=== PATIENT | male | born 1960 | race Caucasian/White ===

== ENCOUNTER → 2021-09-18 | Outpatient (CLI) | payer OTHER ==
--- NOTE | 2021-09-18 09:44 | RAD ---
Bilateral knees 2 views each HISTORY: Chronic pain Left knee 2 views were taken of the left knee. There is no fracture or joint effusion or acute osseous abnormal ity. There is mild vascular calcification. Right knee 2 views were taken of the right knee. There is no fracture or joint effusion or acute osseous abnorma lity. IMPRESSION: 1. No acute osseous abnormality noted in either knee. Electronically signed by: Orlando Robison MD (09/18/2021 9:42 AM) [id number]
== END ==
LOC: RAD 09:12
PROVIDERS: ATTEND Family Medicine
DX: Z02.71 Encounter for disability determination (principal); M25.862 Other specified joint disorders, left knee; M25.861 Other specified joint disorders, right knee
CPT/HCPCS: 73560-50

== ENCOUNTER 2021-11-11 07:03 | Emergency (ER) | payer SELFPAY ==
[~2021-11-11] VITALS: Ht 198.1 cm; Wt 105.0 kg
[2021-11-11] MEDS ORDERED: NITROGLYCERIN SUBLINGUAL 0.4 MG BOTTLE OF 25. SL PRN (07:45)
[2021-11-11] MEDS ORDERED: ASPIRIN CHEWABLE 81 MG TABLET. PO ONE (07:45)
--- NOTE | 2021-11-11 07:51 | PHYS DOC ---
Past History Past Surgical History: Other Additional Past Surgical Histo: hernia Adult General Chief Complaint Chief Complaint: CHEST PAIN [facility] HPI Patient is a 61 year old male who presents with chest pain. Patient is known to have history of coronary artery disease, hyperlipidemia, high blood pressure, and type 2 diabetes. He comes to the ER today complaining of sternal chest pain that started at 4:00 this morning. He was at rest when the pain started. Pain is intermittent and initially radiated to the thoracic back but the back pain has since resolved. He could not identify any aggravating or alleviating factors. Denies that he has had similar symptoms to this in the past. Relates that he was recently treated earlier this year for Covid when he was hospitalized. He had some complaints of chest pain and underwent stress testing which was abnormal. He was subsequently taken to [facility] where cardiac catheterization was revealing for lesion which was not amenable to stenting. He was scheduled for routine coronary artery bypass graft surgery. This care was completed at the [facility] and his surgery is scheduled for next month to be completed at [facility]. He denies that he has been ill lately. No cough or viral symptoms. No shortness of breath. Does take baby aspirin daily and took his medication this morning. Review of Systems Review of Systems Constitutional: Denies fever or chills Eyes: Denies change in visual acuity, redness, or eye pain HENT: Denies nasal congestion or sore throat Respiratory: Denies cough or shortness of breath Cardiovascular: No additional information not addressed in HPI GI: Denies abdominal pain, nausea, vomiting, bloody stools or diarrhea : Denies dysuria or hematuria Musculoskeletal: Denies back pain or joint pain Integument: Denies rash or skin lesions Neurologic: Denies headache, focal weakness or sensory changes Endocrine: Denies polyuria or polydipsia All other systems were reviewed and found to be within normal limits, except as documented in this note. Allergies Allergies Allergies Coded Allergies Type Severity Reaction Last Updated Verified No Known Drug Allergies 11/11/21 No Physical Exam Physical Exam Constitutional: Well developed, well nourished, no acute distress, non-toxic appearance HENT: Normocephalic, atraumatic, bilateral external ears normal, oropharynx moist Eyes: PERRLA, EOMI, conjunctiva normal Neck: Normal range of motion, no tenderness Cardiovascular:Heart rate regular rhythm, no murmur, equal pulses bilateral upper extremities Lungs & Thorax: Bilateral breath sounds clear to auscultation Abdomen: Bowel sounds normal, soft, no tenderness Skin: Warm, dry, no erythema, no rash Extremities: No tenderness, no cyanosis, no clubbing, ROM intact, no edema. Neurologic: Alert and oriented X 3, normal motor function Psychologic: Affect normal Current Patient Data Vital Signs Vital Signs Date Time Temp Pulse Resp B/P (MAP) Pulse Ox O2 Delivery O2 Flow Rate FiO2 11/11/21 07:16 97.4 70 18 145/78 (100) 96 EKG EKG 07:10: Interpreted by ER physician. No STEMI. Normal sinus rhythm with rate of 71. Radiology/Procedures Radiology/Procedures [] Heart Score C/O Chest Pain: Yes HEART Score for Chest Pain: HEART Score for Chest Pain Response (Comments) Value History Moderately Suspicious 1 ECG Normal 0 Age >45 - < 65 1 Risk Factors >3 Risk Factors or Hx CAD 2 Troponin < Normal Limit 0 Total 4 Risk Factors: Risk Factors: DM, Current or recent (<one month) smoker, HTN, HLP, family history of CAD, obesity. Risk Scores: Risk Factors: DM, Current or recent (<one month) smoker, HTN, HLP, family history of CAD, obesity. Course & Med Decision Making Course & Med Decision Making Pertinent Labs and Imaging studies reviewed. (See chart for details) 07:30: Seen and examined. Pain has mostly resolved but he does continue to complain of very dull achiness in the sternal area. Aspirin and nitroglycerin ordered. EKG is nonacute. He does have a history however significant for coronary artery disease in his scheduled for upcoming coronary artery bypass graft surgery. Standard work-up is ordered. 09:30: Sleeping. Arouses easily. Currently pain-free. He was given 1 sublingual nitroglycerin which relieved his pain symptoms. Patient has significant history and requires admission for rule out. His initial troponin is not elevated. He is specifically requesting to go to the [facility] where his primary care team is. Will request transfer to the facility. 09:50: Discussed with Dr. Avalos at [facility]. Mr. Faria is accepted for transfer. Requesting tx dose lovenox which is ordered. Patient is agreeable to the transfer plan of care. 13:20: Transfer pending. Patient sleeping. No return of pain symptoms. 16:00; bed ready at [facility] and nursing report called. Second troponin was collected and not elevated during the ER course. Patient remained stable. EMS notified of need for transport. Dragon Disclaimer Dragon Disclaimer This electronic medical record was generated, in whole or in part, using a voice recognition dictation system. Departure Departure: Impression: Primary Impression: Other chest pain Additional Impression: Coronary artery disease Disposition: 02 SHORT TERM HOSPITAL Condition: GOOD Referrals: AMJOR DOWNS DO (PCP) Problem Qualifiers ALICJA BONILLA DO Nov 11, 2021 07:50
--- NOTE | 2021-11-11 07:53 | RAD ---
XR CHEST 1V History: Reason: chest pain / Spl. Instructions: / History: Comparison: None. Findings: Mild left basilar atelectasis. No pleural effusion. No pneumothorax. Normal heart size. Impression: 1. Mild left basilar linear atelectasis. Electronically signed by: Nguyễn Gutiérrez DO (11/11/2021 7:51 AM) [id number]
[2021-11-11 07:56] VITALS: BP 133/74
[2021-11-11 08:04] LABS: BASO # 0.2 x10^3/uL (0.0-0.2); BASO % 2 % (0-3); EOS # 0.3 x10^3/uL (0.0-0.7); EOS % 3 % (0-3); HEMATOCRIT 41.8 % (39.0-53.0); LYMPH # 1.5 x10^3/uL (1.0-4.8); LYMPH % 18 % (24-48); MEAN CORPUSCULAR HEMOGLOBIN 28 pg (25-35); MEAN CORPUSCULAR HGB CONC 33 g/dL (31-37); MEAN CORPUSCULAR VOLUME 85 fL (79-100); MONO # 0.7 x10^3/uL (0.0-1.1); MONO % 8 % (0-9); NEUT # 5.9 x10^3uL (1.8-7.7); NEUT % 69 % (31-73); PLATELET COUNT 297 x10^3/uL (140-400); RED BLOOD COUNT 4.93 x10^6/uL (4.30-5.70); RED CELL DISTRIBUTION WIDTH 13.8 % (11.5-14.5); WHITE BLOOD COUNT 8.5 x10^3/uL (4.0-11.0)
[2021-11-11 08:13] LABS: CALCIUM 8.6 mg/dL (8.5-10.1); CREATININE 1.2 mg/dL (0.7-1.3); GFR 61.3; POTASSIUM 3.8 mmol/L (3.5-5.1)
[2021-11-11] MEDS ORDERED: ENOXAPARIN ** NOTE DOSE ** SYRINGE SQ ONE (10:00)
== END 2021-11-11 16:48 | disposition short-term general hospital (02) ==
LOC: ER 07:03
DX: I25.10 Atherosclerotic heart disease of native coronary artery without angina pectoris (principal); R07.2 Precordial pain; E78.5 Hyperlipidemia, unspecified; I10 Essential (primary) hypertension; E11.9 Type 2 diabetes mellitus without complications
CPT/HCPCS: 36415; 71045; 80048; 82947; 84484; 85025; 87426; 93005; 96372; 99285; J1650